=== PATIENT | female | born 1935 | race Caucasian/White ===

== ENCOUNTER → 2018-02-25 11:50 | Outpatient (CLI) | payer MEDICARE ==
[2018-02-25 12:35] LABS: COLOR YELLOW (YELLOW)
[2018-02-25 12:36] LABS: APPEARANCE HAZY (CLEAR); BILIRUBIN NEGATIVE (NEGATIVE); GLUCOSE NEGATIVE (NEGATIVE); KETONE NEGATIVE (NEGATIVE); NITRITE NEGATIVE (NEGATIVE); PROTEIN TRACE mg/dL (NEGATIVE); UROBILINOGEN NORMAL (NORMAL)
[2018-02-25 12:38] LABS: WHITE CELLS - URINE 0-5 /hpf (0-5)
[2018-02-25 12:39] LABS: BACTERIA FEW /hpf (NONE SEEN); EPITHELIAL CELLS 0-5 /hpf (0-5); RED CELLS - URINE 0-5 /hpf (0-5)
[2018-02-25 12:40] LABS: MUCUS <1+ /lpf (NONE SEEN)
[2018-02-25 12:47] LABS: HYALINE CAST RARE /lpf (NONE SEEN)
== END | disposition home or self-care (01) ==
LOC: D.LABREF 11:50
PROVIDERS: Internal Medicine
DX: Z93.3 Colostomy status (principal); I11.0 Hypertensive heart disease with heart failure